=== PATIENT | female | born 1975 | race Two or more races ===

== ENCOUNTER 2017-03-31 18:08 | Emergency (ER) | payer MEDICAID ==
[~2017-03-31] VITALS: Ht 154.9 cm; Wt 72.6 kg
[~2017-03-31 18:08] MED LIST: INSUINJ SUBCUT; INSUINJ2 SC; INSUINJ48 SC; PREN-96 PO
[2017-03-31 19:30] LABS: Urine Bilirubin Negative (Negative); Urine Color Yellow (Yellow); Urine Ketone Negative (Negative); Urine Mucus FEW (None Seen); Urine Nitrite Negative (Negative); Urine RBC 487 /hpf (0 - 4); Urine Squamous Epithelial Cell FEW /hpf (<5); Urine Urobilinogen Normal (Negative); Urine pH 5.5 (5.0-8.0)
[2017-03-31 19:32] LABS: Urine Blood 3+ /uL (Negative); Urine Glucose 4+ mg/dL (Normal)
[2017-03-31 21:18] LABS: Basophils # (auto) 0.1 uL; Basophils % (auto) 0.6 % (0.0-2.0); CONDITION Y; Eosinophils # (auto) 0.2 uL; Eosinophils % (auto) 1.4 % (0.0-7.0); Hematocrit 41.5 % (36.0-46.0); Hemoglobin 14.3 g/dL (12.2-16.2); Lymphocytes # (auto) 3.5 uL; Lymphocytes % (auto) 30.9 % (10.0-50.0); Mean Corpuscular Hemoglobin 29.4 pg (28.0-32.0); Mean Corpuscular Hgb Conc. 34.3 g/dL (32.0-36.0); Mean Corpuscular Volume 85.5 fL (80.0-100.0); Mean Platelet Volume 7.8 fL (7.4-10.4); Monocytes # (auto) 0.7 uL; Neutrophils # (auto) 6.9 uL; Neutrophils % (auto) 61.1 % (37.0-80.0); Platelet Count (auto) 403 10^3/uL (140-450); Red Cell Distribution Width 13.1 % (11.6-16.0); White Blood Cell 11.4 10^3/uL (4.4-10.8)
[2017-03-31 21:38] LABS: INR 0.92 (0.9-1.15)
[2017-03-31 21:42] LABS: Albumin 3.4 g/dL (3.4-5.0); BUN/Creatinine Ratio 14.7; Calcium 8.5 mg/dL (8.5-10.1); Potassium 3.7 mmol/L (3.5-5.1)
[2017-03-31 21:45] LABS: Bilirubin, Total 0.2 mg/dL (0.2-1.0); Total Protein 7.9 g/dL (6.4-8.2)
[2017-03-31 22:17] VITALS: BP 131/84
== END 2017-03-31 22:57 | disposition home or self-care (01) ==
LOC: ER 18:11
DX: O20.0 Threatened abortion (principal); Z3A.00 Weeks of gestation of pregnancy not specified
CPT/HCPCS: 36415; 76801; 80053; 81001; 81025; 84702; 85025; 85610; 85730; 86850; 86900; 86901

== ENCOUNTER 2017-08-12 12:39 | Emergency (ER) | payer MEDICAID ==
[~2017-08-12] VITALS: Ht 154.9 cm; Wt 72.1 kg
[2017-08-12 12:53] VITALS: BP 119/81
[2017-08-12 15:59] LABS: Urine Bilirubin Negative (Negative); Urine Blood 2+ /uL (Negative); Urine Color Yellow (Yellow); Urine Glucose 4+ mg/dL (Normal); Urine Ketone Negative (Negative); Urine Nitrite Negative (Negative); Urine RBC 92 /hpf (0 - 4); Urine Squamous Epithelial Cell FEW /hpf (<5); Urine Urobilinogen Normal (Negative); Urine pH 5.5 (5.0-8.0)
[2017-08-12 19:04] LABS: Basophils # (auto) 0.1 uL; Basophils % (auto) 0.6 % (0.0-2.0); Eosinophils # (auto) 0.2 uL; Eosinophils % (auto) 1.6 % (0.0-7.0); Hematocrit 43.3 % (36.0-46.0); Hemoglobin 14.6 g/dL (12.2-16.2); Lymphocytes # (auto) 3.4 uL; Lymphocytes % (auto) 29.5 % (10.0-50.0); Mean Corpuscular Hemoglobin 28.8 pg (28.0-32.0); Mean Corpuscular Hgb Conc. 33.8 g/dL (32.0-36.0); Mean Corpuscular Volume 85.2 fL (80.0-100.0); Mean Platelet Volume 7.7 fL (6.9-10.8); Monocytes # (auto) 0.6 uL; Monocytes % (auto) 5.1 % (0.0-12.0); Neutrophils # (auto) 7.2 uL; Neutrophils % (auto) 63.2 % (37.0-80.0); Nucleated Red Blood Cells % 0.1 %; Platelet Count (auto) 401 10^3/uL (140-450); Red Cell Distribution Width 12.9 % (11.8-14.3); White Blood Cell 11.4 10^3/uL (4.4-10.8)
== END 2017-08-12 17:58 | disposition home or self-care (01) ==
LOC: ER 12:39
DX: O36.4XX9 Maternal care for intrauterine death, other fetus (principal); O23.41 Unspecified infection of urinary tract in pregnancy, first trimester; Z3A.01 Less than 8 weeks gestation of pregnancy; Z79.4 Long term (current) use of insulin
CPT/HCPCS: 36415; 76801; 76817; 81001; 81025; 84702; 85025